=== PATIENT | female | born 1995 | race Caucasian/White ===

== ENCOUNTER 2025-02-27 11:17 | Emergency (ER) | payer MEDICAID, SELFPAY ==
[2025-02-27 11:20] VITALS: BP 129/74; PULSE 84; RESP 16; TEMP 37; O2SAT 99; BMI 22.8
--- NOTE | 2025-02-27 11:24 | DI.RAD.S_ITS ---
PROCEDURE: XR ANKLE LT MIN 3V INDICATIONS: rolled ankle/felt a pop TECHNIQUE: 3 views of the ankle were acquired. COMPARISON: None. FINDINGS: Bones: No fractures or dislocations. Ankle mortise is normally aligned. No suspicious bony lesions. Soft tissues: No tibiotalar joint effusion. Achilles tendon appears normal. IMPRESSION: No acute ankle fracture or dislocation. No gross soft tissue abnormalities. Dictated by: Lei Mcdonnell M.D. on 02/27/2025 at 12:00 Approved by: Lei Mcdonnell M.D. on 02/27/2025 at 12:01
--- NOTE | 2025-02-27 11:56 | ED_ITS ---
HPI - Extremity Injury (Lower) <Shauna Pimentel PA-C - Last Filed: 02/27/25 12:27> General Chief Complaint: Extremity Injury, Lower Stated Complaint: left ankle pain and swelling Time Seen by Provider: 02/27/25 11:27 Source: patient Mode of arrival: Wheelchair History of Present Illness HPI Narrative: Ms. Gross is a pleasant 29-year-old female with a past medical history of prior shoulder and hip surgery who presents to the emergency department for left ankle pain after rolling it this morning. Patient reports she was on a hike/trail run when she stepped on her left foot causing her left ankle to roll inwards. She felt a crack on the ankle and then felt a 2nd crack when she attempted to bear weight on it again. She was able to walk herself to her car, she spent the morning resting elevating and icing the ankle however she continues to have lateral ankle pain with bearing weight. She notices some slight swelling and bruising on the lateral aspect of the ankle as well. No numbness tingling weakness or any other injuries. No medications prior to arrival, she would not like any medications at this time. Related Data Allergies Allergy/AdvReac Type Severity Reaction Status Date / Time lithium Allergy Rash Verified 02/27/25 11:20 Review of Systems <Shauna Pimentel PA-C - Last Filed: 02/27/25 12:27> Review of Systems ROS Unobtainable: All systems reviewed & are unremarkable except as noted in HPI and below Patient History <Shauna Pimentel PA-C - Last Filed: 02/27/25 12:27> Social History Smoking Status: Never smoker Smoking Status: Never smoker Exam <BAILEE Roy Last Filed: 02/27/25 12:27> Narrative Exam Narrative: GENERAL: 29 year old patient appears stated age. Well-developed patient, in no acute distress. HEAD: Atraumatic. Normocephalic. CARDIOVASCULAR: Regular rate RESPIRATORY: ?Nonlabored respirations. ?Speaking in clear, full sentences. EXTREMITIES: Mild TTP just distal to the left lateral malleolus. No focal bony tenderness over the lateral malleolus or medial malleolus or dorsal midfoot. No tenderness to palpation of the heel or Achilles tendon. Strong DP and PT pulse and brisk capillary refill in the toes. No obvious deformities. Plantar and dorsiflexion strength are intact but with pain NEURO: AOx3. ?Clear speech. ?Sensation intact to light touch on the dorsal and plantar left foot. SKIN: No rash or erythema of visible areas Initial Vital Signs Initial Vital Signs: Vital Signs Temperature 98.6 F 02/27/25 11:20 Pulse Rate 84 02/27/25 11:20 Respiratory Rate 16 02/27/25 11:20 Blood Pressure 129/74 02/27/25 11:20 Pulse Oximetry 99 02/27/25 11:20 Oxygen Delivery Method Room Air 02/27/25 11:20 <DO Jacqueline Escalante Last Filed: 03/02/25 01:24> Initial Vital Signs Initial Vital Signs: Vital Signs Temperature 98.6 F 02/27/25 11:20 Pulse Rate 84 02/27/25 11:20 Respiratory Rate 16 02/27/25 11:20 Blood Pressure 129/74 02/27/25 11:20 Pulse Oximetry 99 02/27/25 11:20 Oxygen Delivery Method Room Air 02/27/25 11:20 Course <Shauna Pimentel PA-C - Last Filed: 02/27/25 12:27> Orders Ordered: ED Orders 02/27/25 11:24 XR ankle LT min 3V Stat Vital Signs Vital signs: Vital Signs - 8 hr 02/27/25 11:20 Temperature 98.6 F Pulse Rate 84 Respiratory Rate 16 Blood Pressure 129/74 Pulse Oximetry 99 Oxygen Delivery Method Room Air <DO Jacqueline Escaalnte Last Filed: 03/02/25 01:24> Orders Ordered: ED Orders 02/27/25 11:24 XR ankle LT min 3V Stat Vital Signs Vital signs: Vital Signs - 8 hr 02/27/25 11:20 Temperature 98.6 F Pulse Rate 84 Respiratory Rate 16 Blood Pressure 129/74 Pulse Oximetry 99 Oxygen Delivery Method Room Air MDM - Extremity Injury (Lower) <BAILEE Roy Last Filed: 02/27/25 12:27> Medical Records Medical records narrative: None available for review Imaging Data Left Ankle X-Ray: Radiologist's Impression: PROCEDURE: XR ANKLE LT MIN 3V INDICATIONS: rolled ankle/felt a pop TECHNIQUE: 3 views of the ankle were acquired. COMPARISON: None. FINDINGS: Bones: No fractures or dislocations. Ankle mortise is normally aligned. No suspicious bony lesions. Soft tissues: No tibiotalar joint effusion. Achilles tendon appears normal. IMPRESSION: No acute ankle fracture or dislocation. No gross soft tissue abnormalities. MDM Narrative Medical decision making narrative: 29-year-old female with a past medical history of prior shoulder and hip surgery who presents to the emergency department for left ankle pain after rolling it this morning. Differential diagnosis includes but is not limited to left ankle sprain, strain, fracture, soft tissue injury, etc. On exam patient is in no acute distress, nontoxic appearing, vital signs within normal limits. Left foot is neurovascularly intact with mild tenderness to palpation just distal to the lateral malleolus. Left ankle x-ray obtained in triage reveals no acute ankle fracture dislocation. No gross soft tissue abnormalities. After shared decision making with pt, she would like to be conscious of cost of resources therefore we will treat with Jr wrap, crutches, weight-bearing as tolerated, rice therapy, ibuprofen acetaminophen. Advised follow up with PCP or orthopedics for persistent or worsening symptoms, strict ED return precautions were discussed. She verbalized understanding all information is agreeable to the plan. She is stable for discharge home. Discharge Plan Departure Patient Disposition: Home Clinical Impression: Inversion sprain of left ankle Qualifiers: Encounter type: initial encounter Qualified Code(s): S93.402A - Sprain of unspecified ligament of left ankle, initial encounter Instructions: DI for Ankle Sprain Activity Restrictions/Additional Instructions: Dear Ginny, Thank you for coming to the emergency department. Today you were evaluated for left ankle injury. Your x-ray reveals no fracture of the bones. X-rays do not tell us about important injuries to soft tissues and ligaments. Your symptoms a re consistent with an ankle sprain at this time and it is important to follow up the recommendations below, continue wearing an Jr wrap or other ankle brace, and use crutches as needed. Please use RICE therapy for your pain in addition to ibuprofen/acetaminophen. Rest the painful area. Ice the area of pain/swelling for at least 15 minutes, 4x a day. Compress the area of swelling using a brace, wrap, or splint if applied. Elevate the painful or swollen extremity by supporting it above the level of the heart with pillows when sitting or laying. Please take Ibuprofen (Motrin/Advil) or Acetaminophen (Tylenol) for pain. These are available over the counter. You may take Ibuprofen 600 mg every 8 hours with food for pain. You may also take Acetaminophen 650 mg every 4-6 hours for pain. Do not exceed 3000 mg of Tylenol a day as this can cause liver damage. Do not dr ink alcohol with either of these medications. Please follow up with your primary care doctor, if you have persistent symptoms, it will be important to see an orthopedic doctor for further management. You can call [facility] (in [place] or [facility]) for a follow up appointment. Please follow up with your primary care doctor within the next 2-3 days for ER follow-up. (If you do not have a PCP you can call [phone]. ?to schedule an appointment with an [facility] Primary Care Provider) IF YOU DEVELOP ANY NEW OR WORSENING SYMPTOMS, RETURN TO THE ER! Please read the attached instructions, they highlight more specific treatments and interventions for you at home. Thank you for letting me participate in your care, Shauna Pimentel PA-C Stand Alone Forms: Patient Portal/API/Survey, Work Release Note ED Sign-out <Isa Pritchett DO - Last Filed: 03/02/25 01:24> Cosign ED Attending Elverature Attestation: I was available for consultation.
== END 2025-02-27 12:45 | disposition home or self-care (01) ==
PROVIDERS: Emergency Provider Physician Assistant
DX: S93.402A Sprain of unspecified ligament of left ankle, initial encounter (principal); X50.1XXA Overexertion from prolonged static or awkward postures, initial encounter; Y93.02 Activity, running
CPT/HCPCS: 73610; 99281; 99283